=== PATIENT | male | born 1970 | race African-American/Black ===

== ENCOUNTER 2016-12-20 11:12 | Emergency (ER) | payer OTHER ==
[~2016-12-20] VITALS: Ht 185.4 cm; Wt 156.5 kg
[~2016-12-20 11:12] MED LIST: ACET1TAB86; AMLO10TA4 PO; ATOR20TA PO; Aspirin PO; CLON0.2T PO; CLON0.5T; FLUT1DIS3 INH; HYDR-971 PO; IBUP200C; LEVO500T59 PO; LOSA50TA2 PO; METH4TAB2 PO; METO25TA9; Metoprolol Tartrate PO
[2016-12-20] MEDS ORDERED: LABETALOL 20 MG/4 ML DISP.SYRIN. IVP ONE (12:00)
[2016-12-20] MEDS ORDERED: ONDANSETRON PF 4 MG/2 ML VIAL. IV ONE (12:00)
[2016-12-20] MEDS ORDERED: IV NORMAL SALINE 1000ML BAG 1,000 ML IV SCH (12:00)
[2016-12-20] MEDS ORDERED: fentaNYL PF VIAL 100 MCG/2 ML VIAL IV PRN (12:00)
[2016-12-20 12:03] LABS: BILIRUBIN,URINE NEGATIVE (NEG); GLUCOSE,URINE 250 mg/dL (NEG); NITRITE,URINE NEGATIVE (NEG); PROTEIN,URINE NEGATIVE (NEG-TRACE); UROBILINOGEN,URINE 0.2 mg/dL (0.2 mg/dL)
[2016-12-20 12:09] LABS: BARBITURATES NEG (NEG); BENZODIAZEPINES NEG (NEG); CANNABINOIDS NEG (NEG); COCAINE NEG (NEG); METHADONE NEG (NEG); OPIATES NEG (NEG); PHENCYCLIDINE NEG (NEG)
[2016-12-20 12:23] LABS: BACTERIA,URINE FEW /HPF (0-FEW); RBC,URINE RARE /HPF (0-2)
[2016-12-20] MEDS ORDERED: hydrALAZINE 25 MG TABLET PO STA (12:35)
[2016-12-20] MEDS ORDERED: METOPROLOL TART IMMED RELEASE 50 MG TABLET. PO ONE (13:00)
[2016-12-20] MEDS ORDERED: LISINOPRIL 10 MG TABLET PO ONE (13:00)
[2016-12-20 13:30] VITALS: BP 169/89
[2016-12-20] MEDS ORDERED: HYDR-2868 PO (13:52)
[2016-12-20] MEDS ORDERED: LISI-334 PO (13:52)
[2016-12-20] MEDS ORDERED: METO100T2 PO (13:52)
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
== END 2016-12-20 14:00 | disposition home or self-care (01) ==
LOC: ER 11:12
DX: I10 Essential (primary) hypertension (principal); Z88.0 Allergy status to penicillin; E66.9 Obesity, unspecified; Z68.42 Body mass index [BMI] 45.0-49.9, adult; I48.91 Unspecified atrial fibrillation
CPT/HCPCS: 80307; 81001; 99284; G0479